=== PATIENT | female | born 1960 | race Caucasian/White ===

== ENCOUNTER 2022-04-27 13:36 | Emergency (ER) | payer SELFPAY ==
[2022-04-27] MEDS ORDERED: NORCO 5-325 TA1 EACH PO (16:36)
== END 2022-04-27 16:44 | disposition home or self-care (01) ==
LOC: FER 13:36
DX: S60.221A Contusion of right hand, initial encounter (principal); I10 Essential (primary) hypertension; F17.200 Nicotine dependence, unspecified, uncomplicated; Z28.310 Unvaccinated for COVID-19; Z88.0 Allergy status to penicillin; X50.1XXA Overexertion from prolonged static or awkward postures, initial encounter; Y92.009 Unspecified place in unspecified non-institutional (private) residence as the place of occurrence of the external cause
CPT/HCPCS: 72131; 73130

== ENCOUNTER 2022-05-30 17:18 | Emergency (ER) | payer SELFPAY ==
[~2022-05-30 17:18] MED LIST: NORCO 5-325 TA1 EACH PO
[2022-05-30 18:52] LABS: BASOPHIL 0.5 % (0-2); EOSINOPHIL 0.4 % (0-5); HCT 37.1 % (37.0-47.0); HGB 12.1 g/dl (12.5-16.0); LYMPHOCYTE 11.3 % (15-48); MCH 29.8 pg (25.0-31.0); MCHC 32.6 g/dL (32.0-36.0); MCV 91.4 fL (78.0-100.0); MONOCYTE 3.4 % (0-12); MPV 11.2 fL (6.0-9.5); NEUTROPHIL 83.9 % (41-80); NRBC 0; PLT 151 K/uL (150-400); RBC 4.06 M/uL (4.20-5.40); RDW 13.3 % (11.5-14.0); WBC 8.6 K/uL (4.0-10.5)
[2022-05-30 19:19] LABS: ALBUMIN 3.3 g/dL (3.4-5.0); BILIRUBIN - TOTAL 0.3 mg/dL (0.2-1.0); CREATININE 0.76 mg/dL (0.51-0.95); GLOBULIN (CALCULATION) 3.6 g/dL; POTASSIUM 3.2 mmol/L (3.5-5.1); TOTAL PROTEIN 6.9 g/dL (6.4-8.2)
[2022-05-30 19:23] LABS: INR 0.95 (0.9-1.2); PROTHROMBIN TIME 12.4 SECONDS (11.9-13.9); PTT 30.5 SECONDS (24.9-34.6)
[2022-05-30 19:28] LABS: CORONAVIRUS 2019 SARS-COV-2 NEGATIVE (NEGATIVE); INFLUENZA A NAA NEGATIVE (NEGATIVE)
== END 2022-05-30 19:30 | disposition other institution (70) ==
LOC: FER 17:18
PROVIDERS: Internal Medicine
DX: I60.9 Nontraumatic subarachnoid hemorrhage, unspecified (principal); I16.0 Hypertensive urgency; I10 Essential (primary) hypertension; R29.700 NIHSS score 0; I48.91 Unspecified atrial fibrillation; F17.210 Nicotine dependence, cigarettes, uncomplicated; Z88.0 Allergy status to penicillin; Z20.822 Contact with and (suspected) exposure to COVID-19; Z28.310 Unvaccinated for COVID-19
CPT/HCPCS: 36415; 70450; 72125; 80053; 82550; 83605; 84145; 84484; 85025; 85610; 85730; 93005; J2270; J2765; J3475; J7030; U0002